=== PATIENT | male | born 1945 | race Two or more races ===

== ENCOUNTER 2020-08-23 18:12 | Emergency (ER) | payer MEDICAID, OTHER ==
[~2020-08-23] VITALS: Ht 167.6 cm; Wt 81.6 kg
[2020-08-23 18:41] LABS: Basophils # (auto) 0.1 10 ^3/uL (0-0.2); Basophils % (auto) 0.6 % (0.0-2.0); Eosinophils # (auto) 0.4 10 ^3/uL (0-0.8); Eosinophils % (auto) 4.3 % (0.0-7.0); Hematocrit 48.3 % (41.0-53.0); Hemoglobin 16.1 g/dL (13.5-17.5); Lymphocytes # (auto) 2.5 10 ^3/uL (0.4-5.4); Lymphocytes % (auto) 28.2 % (10.0-50.0); Mean Corpuscular Hemoglobin 27.9 pg (28.0-32.0); Mean Corpuscular Hgb Conc. 33.4 g/dL (32.0-36.0); Mean Corpuscular Volume 83.6 fL (80.0-100.0); Monocytes % (auto) 10.9 % (0.0-12.0); Nucleated Red Blood Cells % 0.2 %; Red Blood Cells 5.78 10^6/uL (4.5-5.90); Red Cell Distribution Width 13.8 % (11.8-14.3); White Blood Cell 8.9 10^3/uL (4.4-10.8)
[2020-08-23 19:06] LABS: Alanine Aminotransferase 37 U/L (16-61); Albumin 3.6 g/dL (3.4-5.0); Anion Gap 4 (5-15); Blood Urea Nitrogen 20 mg/dL (7-18); Calcium 8.9 mg/dL (8.5-10.1); Carbon Dioxide 27 mmol/L (21-32); Chloride 104 mmol/L (98-107); Glucose 113 mg/dL (74-106); Magnesium 2.4 mg/dL (1.6-2.6); Potassium 3.9 mmol/L (3.5-5.1); Sodium 135 mmol/L (136-145)
[2020-08-23 19:11] LABS: Alkaline Phosphatase 85 U/L (45-117); Aspartate Aminotransferase 17 U/L (15-37); BUN/Creatinine Ratio 33.3; Bilirubin, Total 0.6 mg/dL (0.2-1.0); GFR African American 168 mL/min; GFR Non-African American 139 mL/min; Total Protein 7.9 g/dL (6.4-8.2)
[2020-08-23 20:01] LABS: Urine WBC None Seen /hpf (0 - 3)
[2020-08-23 20:21] LABS: Urine Bacteria NONE SEEN /hpf (None Seen); Urine Blood Negative /uL (Negative); Urine Specific Gravity 1.008 (1.001-1.035)
[2020-08-23] MEDS ORDERED: HYDROcodone-ACET 5/325MG TAB PO ONE (23:45)
[2020-08-24] MEDS ORDERED: ACYCLOVIR SOD 50MG/ML 500 MG in D5W 5% 100 ML IV ONE ×2
[2020-08-24] MEDS ORDERED: MORPHINE SULFATE 4 MG/ML SYR/VIAL IV ONE
[2020-08-24] MEDS ORDERED: LIDOCAINE HCL 5 % TOP OINT 35 GM TOP ONE (00:30)
[2020-08-24] MEDS ORDERED: ACYCLOVIR SODIUM (50 MG/ ML) 10 ML VIAL IV ONE (00:52)
[2020-08-24 01:00] VITALS: BP 137/75
== END 2020-08-24 01:37 | disposition home or self-care (01) ==
LOC: ER 18:12
DX: B02.29 Other postherpetic nervous system involvement (principal); K59.00 Constipation, unspecified; K57.90 Diverticulosis of intestine, part unspecified, without perforation or abscess without bleeding; N40.0 Benign prostatic hyperplasia without lower urinary tract symptoms; E78.5 Hyperlipidemia, unspecified; I10 Essential (primary) hypertension
CPT/HCPCS: 36415; 74176; 80053; 81001; 83735; 84484; 85025; 93005; 96365; 96375; 99285; J7060

== ENCOUNTER 2023-01-03 19:08 | Emergency (ER) | payer MEDICAID, MEDICARE ==
[~2023-01-03] VITALS: Ht 170.2 cm; Wt 79.0 kg
[2023-01-04] MEDS ORDERED: AZIT-43 PO (00:46)
[2023-01-04] MEDS ORDERED: PRED10TA PO (00:46)
[2023-01-04] MEDS ORDERED: cefTRIAXone SOD 1,000 MG VL IM ONE (01:00)
[2023-01-04 01:30] VITALS: BP 146/78; PULSE 78; RESP 19; TEMP 98.3; O2SAT 96
== END 2023-01-04 01:30 | disposition home or self-care (01) ==
LOC: ER 19:08
DX: J06.9 Acute upper respiratory infection, unspecified (principal)
CPT/HCPCS: 71045; 96372; 99283; J0696

== ENCOUNTER 2023-01-10 10:29 | Emergency (ER) | payer MEDICARE ==
[~2023-01-10] VITALS: Ht 167.6 cm; Wt 80.0 kg
[~2023-01-10 10:29] MED LIST: AZIT-43 PO; PRED10TA PO
[2023-01-10] MEDS ORDERED: ALBUAER3 IN (11:47)
[2023-01-10] MEDS ORDERED: DOXY-286 PO (11:47)
[2023-01-10 11:58] VITALS: BP 144/105; PULSE 100; RESP 24; TEMP 97.3; O2SAT 97
== END 2023-01-10 12:01 | disposition home or self-care (01) ==
LOC: ER 10:29
DX: J18.9 Pneumonia, unspecified organism (principal); R07.89 Other chest pain
CPT/HCPCS: 71046; 93005